=== PATIENT | female | born 1960 | race Caucasian/White ===

== ENCOUNTER → 2016-08-21 | Outpatient (CLI) | payer MEDICARE, OTHER ==
--- NOTE | 2016-08-21 11:40 | US ---
EXAMINATION TYPE: US venous doppler duplex LE DATE OF EXAM: 08/21/2016 11:07 AM COMPARISON: NONE CLINICAL HISTORY: M79.662 PAIN IN LT LOWER LIMB. Left calf pain and redness today; prior left leg DVT ~20 years ago after arthroscopy SIDE PERFORMED: Left VESSELS IMAGED: Common Femoral Vein Deep Femoral Vein Greater Saphenous Vein * Femoral Vein Popliteal Vein Small Saphenous Vein * Proximal Calf Veins (* superficial vessels) TECHNOLOGIST IMPRESSION: Left Leg: Negative for acute DVT. Intimal wall changes noted at left popliteal fossa may be from silvano or DVT, and may suggest chronic wall changes. Wall thickening and popliteal vein is suggestive of product of chronic thrombus. No hyperexpansile th rombus with absent compressibility is noted. IMPRESSION: No ultrasound evidence for acute DVT in the left lower extremity.
== END | disposition home or self-care (01) ==
LOC: RADUSWWP 09:48
PROVIDERS: ATTEND Family Medicine
DX: M79.662 Pain in left lower leg (principal)

== ENCOUNTER → 2017-02-12 | Outpatient (CLI) | payer MEDICARE, OTHER ==
--- NOTE | 2017-02-12 10:10 | US ---
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 GLAND SIZE: Right Lobe: 4.1 x 1.8 x 4.1 cm Overall Parenchyma: homogenous Left Lobe: 3.5 x 2.2 x 1.1 cm Overall Parenchyma: homogeneous Isthmus Thickness: 0.3 cm NODULES RIGHT: # of nodules measured on right: 0 LEFT: # of nodules measured on left: 0 ISTHMUS: # of nodules measured in the isthmus: 0 Bilateral neck scanned, no evidence of lymphadenopathy. IMPRESSION: Unremarkable thyroid ultrasound with no discrete nodules, thyroid enlargement, or thyroid heterogenei ty.
== END | disposition home or self-care (01) ==
LOC: RADUSWWP 09:19
PROVIDERS: ATTEND Family Medicine
DX: E04.9 Nontoxic goiter, unspecified (principal)
CPT/HCPCS: 76536

== ENCOUNTER → 2017-03-12 | Outpatient (CLI) | payer MEDICARE, OTHER ==
--- NOTE | 2017-03-12 10:01 | BD ---
EXAMINATION TYPE: MG DEXA axial skeleton. DATE OF EXAM: 03/12/2017 COMPARISON: NONE CLINICAL HISTORY: 56-year-old female postmenopausal screening Height: 64 IN Weight: 196 LBS FRAX RISK QUESTIONS: Alcohol (3 or more units per day): NO Family History (Parent hip fracture): NO Glucocorticoids (More than 3mos): NO (Ex: prednisone, prednisolone, methylprednisolone, dexamethasone, and hydrocortisone). History of Fracture in Adulthood: NO Secondary Osteoporosis: 1. Type 1 Diabetes: NO 2. Hyperthyroidism: NO 3. Menopause before 45: YES AGE 44 4. Malnutrition: NO 5. Chronic liver disease: NO Rheumatoid Arthritis: NO Current Tobacco Use: YES RISK FACTORS HISTORY OF: Active: YES Postmenopausal woman: AGE 44 Frequent falls: YES 5 FALLS IN LAST YEAR DUE TO FOOT MEDICATIONS: Additional Medications: MAGNESIUM, PRILOSEC, LUTEIN EXAM MEASUREMENTS: Bone mineral densitometry was performed using the [employer] System. Bone mineral density as measured about the Lumbar spine is: ----- L1-L4(G/cm2): 1.038 T Score Values are as follows: ----- L2: -1.6 ----- L3: -1.6 ----- L4: -0.8 ----- L1-L4: -1.2 Bone mineral density BASELINE Bone mineral density about the R hip (g/cm2): 0.772 Bone mineral density about the L hip (g/cm2): 0.820 T Score values are as follows: -----R Neck: -1.9 -----L Neck: -1.6 -----R Total: -1.3 -----L Total: -1.2 Bone mineral density BASELINE IMPRESSION: Osteopenia (T Score between -2.5 and -1 as noted by T score values as indicated by T score values in the lumbar spine and both hips). There is slightly increased risk of fracture and the patient may be considered for treatment. Re-Scre en 2-5 years. NOTE: T-SCORE=SD OF THE YOUNG ADULT MEAN.
--- NOTE | 2017-03-13 09:22 | MM ---
Reason for exam: screening (asymptomatic). Last mammogram was performed 2 years and 5 months ago. History: Patient is postmenopausal. Physical Findings: A clinical breast exam by your physician is recommended on an annual basis and results should be correlated with mammographic findings. MG 3D Screening Mammo W/Cad Bilateral CC and MLO view(s) were taken. Prior study comparison: October 21, 2014, bilateral MG screening mammo w CAD. October 17, 2012, bilateral digital screening mammo w/CAD. There are scattered fibroglandular densities. Finding: There are typically benign round calcifications in both breasts. There is a chronic nodularity in the right breast. New small nodularity in the left breast. ASSESSMENT: Incomplete: need additional imaging evaluation, BI-RAD 0 RECOMMENDATION: Ultrasound of the left breast. [facility] will attempt to contact patient to return for ultrasound.
== END | disposition home or self-care (01) ==
LOC: RADMAMWWP 07:27
PROVIDERS: ATTEND Family Medicine
DX: Z12.31 Encounter for screening mammogram for malignant neoplasm of breast (principal); N95.1 Menopausal and female climacteric states; M85.88 Other specified disorders of bone density and structure, other site
CPT/HCPCS: 77080; 77063; G0202

== ENCOUNTER 2017-04-15 09:15 | Observation (INO) | payer MEDICARE, OTHER ==
[2017-04-15] MEDS ORDERED: SODIUM CHLORIDE 0.9% 1,000 ML IV STA (09:38)
[2017-04-15 10:08] LABS: Basophils # (A) 0.1 k/uL (0-0.2); Basophils % (A) 1 %; CH 29.9; CHCM 34.3; Eosinophils # (A) 0.2 k/uL (0-0.7); Eosinophils % (A) 2 %; HCT 44.9 % (34.0-46.0); HDW 2.54; HGB 14.9 gm/dL (11.4-16.0); Luc # (Auto) 0.17; Luc % (Auto) 2; Lymphocytes # (A) 2.1 k/uL (1.0-4.8); Lymphocytes % (A) 18 %; MCHC 33.1 g/dL (31.0-37.0); MCV 87.5 fL (80.0-100.0); Mean Platelet Volume 7.4; Monocytes # (A) 0.5 k/uL (0-1.0); Monocytes % (A) 4 %; Neutrophils # (A) 8.4 k/uL (1.3-7.7); Neutrophils % (A) 74 %; RBC 5.13 m/uL (3.80-5.40); RDW 14.4 % (11.5-15.5); WBC 11.4 k/uL (3.8-10.6); WBC (Perox) 11.21
--- NOTE | 2017-04-15 10:16 | XR ---
EXAMINATION TYPE: XR chest 2V DATE OF EXAM: 04/15/2017 HISTORY: Chest Pain. REFERENCE: Previous study dated 08/20/2013. FINDINGS: The lungs are clear. Pleural spaces are clear. Heart size is normal. There is a gentle dext roscoliosis. There is been a previous ACDF in the lower cervical spine. IMPRESSION: NO ACUTE INTRATHORACIC ABNORMALITY.
[2017-04-15 10:18] LABS: Partial Thromboplastin Time 24.7 sec (22.0-30.0); Prothrombin Time 10.6 sec (9.0-12.0)
[2017-04-15 10:20] LABS: ALT 39 U/L (9-52); AST 24 U/L (14-36); Alkaline Phosphatase 132 U/L (38-126); Anion Gap 12 mmol/L; Blood Urea Nitrogen 16 mg/dL (7-17); Calcium 10.2 mg/dL (8.4-10.2); Carbon Dioxide 26 mmol/L (22-30); Chloride 100 mmol/L (98-107); Glucose 128 mg/dL (74-99); Non-African American GFR(MDRD) >60 (>60 ml/min/1.73 sqM); Potassium 3.4 mmol/L (3.5-5.1); Sodium 138 mmol/L (137-145); Total Bilirubin 0.5 mg/dL (0.2-1.3); Total Protein 8.1 g/dL (6.3-8.2)
[2017-04-15 10:30] LABS: Creatine Kinase 70 U/L (30-135)
--- NOTE | 2017-04-15 10:32 | ED ---
General Adult HPI - General Chief complaint: Shortness of Breath Stated complaint: SOB, SHAKY, NAUSEA,WEAKNESS Time Seen by Provider: 04/15/17 09:30 Source: patient, RN notes reviewed Mode of arrival: wheelchair Limitations: no limitations - History of Present Illness Initial comments: Patient 57-year-old female who presents emergency room today with a chief complaint of increased palpitations. Patient states that she's felt shaky nauseous at times. Patient does admit that she's noticed that over the last today she's felt her heart racing off and on. Patient does admit that she tried her inhaler at home but had no relief of the symptoms. Patient does admit to a chronic cough and some congestion. Patient admits that seem to be worse when she got up and moving around. She said the palpitations in which is better at rest. Patient denies any other complaints or symptoms. - Related Data Home Medications Medication Instructions Recorded Confirmed EPINEPHrine (Auto Inject) [Epipen] 0.3 mg IM ONCE PRN 02/19/14 04/15/17 Omeprazole 40 mg PO BID 02/19/14 04/15/17 Roflumilast [Daliresp] 500 mcg PO DAILY 02/19/14 04/15/17 amLODIPine BESYLATE [Norvasc] 5 mg PO DAILY 02/19/14 04/15/17 Chlorthalidone [Hygroton] 25 mg PO DAILY 04/15/17 04/15/17 Lutein 6mg 6 mg PO HS 04/15/17 04/15/17 Magnesium Oxide [Mag-Ox] 250 mg PO BID 04/15/17 04/15/17 Allergies Allergy/AdvReac Type Severity Reaction Status Date / Time acetaminophen [From Vicodin] AdvReac Rash/Hives Verified 04/15/17 09:38 ciprofloxacin [From Cipro] AdvReac Rash/Hives Verified 04/15/17 09:38 ciprofloxacin HCl AdvReac Rash/Hives Verified 04/15/17 09:38 [From Cipro] codeine AdvReac Rash/Hives Verified 04/15/17 09:38 egg AdvReac Rash/Hives Verified 04/15/17 09:38 hydrocodone bitartrate AdvReac Rash/Hives Verified 04/15/17 09:38 [From Vicodin] meperidine HCl [From Demerol] AdvReac Rash/Hives Verified 04/15/17 09:38 Penicillins AdvReac Rash/Hives Verified 04/15/17 09:38 Sulfa (Sulfonamide AdvReac Rash/Hives Verified 04/15/17 09:38 Antibiotics) venom-honey bee AdvReac Rash/Hives Verified 04/15/17 09:38 [bee venom (honey bee)] MUSHROOM AdvReac Rash/Hives Uncoded 04/15/17 09:28 Review of Systems ROS Statement: Those systems with pertinent positive or pertinent negative responses have been documented in the HPI. ROS Other: All systems not noted in ROS Statement are negative. Past Medical History Past Medical History: Asthma, COPD Additional Past Medical History / Comment(s): VASQUEZ'S. diabetic diet controlled History of Any Multi-Drug Resistant Organisms: None Reported Past Surgical History: Appendectomy, Section, Cholecystectomy, Joint Replacement, Orthopedic Surgery Additional Past Surgical History / Comment(s): NECK SX, LT FOOT SX, COLONOSCOPY , D&C, EGD, BILAT TKA X 4, RT EAR TUBE INSERTED Past Anesthesia/Blood Transfusion Reactions: Postoperative Nausea & Vomiting ( PONV) Past Psychological History: No Psychological Hx Reported Smoking Status: Current every day smoker Past Alcohol Use History: Rare Past Drug Use History: Marijuana - Past Family History Father Family Medical History: Cancer General Exam - General Exam Comments Initial Comments: General: The patient is awake and alert, in no distress, and does not appear acutely ill. Eye: Pupils are equal, round and reactive to light, extra-ocular movements are intact. No nystagmus. There is normal conjunctiva bilaterally. No signs of icterus. Ears, nose, mouth and throat: There are moist mucous membranes and no oral lesions. Neck: The neck is supple, there is no tenderness or JVD. Cardiovascular: There is a regular rate and rhythm. No murmur, rub or gallop is appreciated. Respiratory: Lungs are clear to auscultation, respirations are non-labored, breath sounds are equal. No wheezes, stridor, rales, or rhonchi. Gastrointestinal: [Soft, non-distended, non-tender abdomen without masses or organomegaly noted. There is no rebound or guarding present. No CVA tenderness. Bowel sounds are unremarkable.] Musculoskeletal: Normal ROM, no tenderness. Strength 5/5. Sensation intact. Pulses equal bilaterally 2+. Neurological: A&O x 3. CN II-XII intact, There are no obvious motor or sensory deficits. Coordination appears grossly intact. Speech is normal. Skin: Skin is warm and dry and no rashes or lesions are noted. Psychiatric: Cooperative, appropriate mood & affect, normal judgment. Limitations: no limitations Course Vital Signs 04/15/17 09:25 Temperature 97.9 F Pulse Rate 106 H Respiratory 18 Rate Blood Pressure 157/88 O2 Sat by Pulse 97 Oximetry Medical Decision Making - Medical Decision Making Patient reexamined at this time shows no signs of distress. States still expresses some palpitation type feeling to the emergency room. She states that she's had some pain in her chest at times over the last day with some exertional fatigue. Patient resting comfortably currently. Her labs been reviewed are unremarkable. Chest x-ray is negative. Patient will be admitted for observation for serial enzymes. - Lab Data Result diagrams: 04/15/17 09:58 04/15/17 09:58 Lab Results 04/15/17 04/15/17 04/15/17 Range/Units 09:58 09:58 09:58 WBC 11.4 H (3.8-10.6) k/uL RBC 5.13 (3.80-5.40) m/uL Hgb 14.9 (11.4-16.0) gm/dL Hct 44.9 (34.0-46.0) % MCV 87.5 (80.0-100.0) fL MCH 29.0 (25.0-35.0) pg MCHC 33.1 (31.0-37.0) g/dL RDW 14.4 (11.5-15.5) % Plt Count 401 (150-450) k/uL Neutrophils % 74 % Lymphocytes % 18 % Monocytes % 4 % Eosinophils % 2 % Basophils % 1 % Neutrophils # 8.4 H (1.3-7.7) k/uL Lymphocytes # 2.1 (1.0-4.8) k/uL Monocytes # 0.5 (0-1.0) k/uL Eosinophils # 0.2 (0-0.7) k/uL Basophils # 0.1 (0-0.2) k/uL PT (9.0-12.0) sec INR (<1.2) APTT (22.0-30.0) sec Sodium 138 (137-145) mmol/L Potassium 3.4 L (3.5-5.1) mmol/L Chloride 100 (98-107) mmol/L Carbon Dioxide 26 (22-30) mmol/L Anion Gap 12 mmol/L BUN 16 (7-17) mg/dL Creatinine 0.92 (0.52-1.04) mg/dL Est GFR (MDRD) Af Amer >60 (>60 ml/min/1.73 sqM) Est GFR (MDRD) Non-Af >60 (>60 ml/min/1.73 sqM) Glucose 128 H (74-99) mg/dL Calcium 10.2 (8.4-10.2) mg/dL Magnesium 2.0 (1.6-2.3) mg/dL Total Bilirubin 0.5 (0.2-1.3) mg/dL AST 24 (14-36) U/L ALT 39 (9-52) U/L Alkaline Phosphatase 132 H (38-126) U/L Total Creatine Kinase 70 (30-135) U/L CK-MB (CK-2) 0.5 (0.0-2.4) ng/mL CK-MB (CK-2) Rel Index 0.7 Troponin I <0.012 (0.000-0.034) ng/mL Total Protein 8.1 (6.3-8.2) g/dL Albumin 4.5 (3.5-5.0) g/dL 04/15/17 Range/Units 09:58 WBC (3.8-10.6) k/uL RBC (3.80-5.40) m/uL Hgb (11.4-16.0) gm/dL Hct (34.0-46.0) % MCV (80.0-100.0) fL MCH (25.0-35.0) pg MCHC (31.0-37.0) g/dL RDW (11.5-15.5) % Plt Count (150-450) k/uL Neutrophils % % Lymphocytes % % Monocytes % % Eosinophils % % Basophils % % Neutrophils # (1.3-7.7) k/uL Lymphocytes # (1.0-4.8) k/uL Monocytes # (0-1.0) k/uL Eosinophils # (0-0.7) k/uL Basophils # (0-0.2) k/uL PT 10.6 (9.0-12.0) sec INR 1.0 (<1.2) APTT 24.7 (22.0-30.0) sec Sodium (137-145) mmol/L Potassium (3.5-5.1) mmol/L Chloride (98-107) mmol/L Carbon Dioxide (22-30) mmol/L Anion Gap mmol/L BUN (7-17) mg/dL Creatinine (0.52-1.04) mg/dL Est GFR (MDRD) Af Amer (>60 ml/min/1.73 sqM) Est GFR (MDRD) Non-Af (>60 ml/min/1.73 sqM) Glucose (74-99) mg/dL Calcium (8.4-10.2) mg/dL Magnesium (1.6-2.3) mg/dL Total Bilirubin (0.2-1.3) mg/dL AST (14-36) U/L ALT (9-52) U/L Alkaline Phosphatase (38-126) U/L Total Creatine Kinase (30-135) U/L CK-MB (CK-2) (0.0-2.4) ng/mL CK-MB (CK-2) Rel Index Troponin I (0.000-0.034) ng/mL Total Protein (6.3-8.2) g/dL Albumin (3.5-5.0) g/dL Disposition Clinical Impression: Palpitations Disposition: ADMITTED IP TO THIS HOSP Condition: Good Referrals: Cornel Darden MD [Primary Care Provider] - 1-2 days Time of Disposition: 11:39
[2017-04-15 10:43] LABS: Creatine Kinase MB 0.5 ng/mL (0.0-2.4); Troponin I <0.012 ng/mL (0.000-0.034)
[2017-04-15] MEDS ORDERED: NITROGLYCERIN SL TABS 0.4 MG TAB SUBLINGUAL PRN (12:05)
[2017-04-15] MEDS ORDERED: ASPIRIN 81 MG PO STA (12:05)
[2017-04-15 13:54] VITALS: BMI 31.8
[2017-04-15 16:51] LABS: Creatine Kinase 64 U/L (30-135)
[2017-04-15 17:05] LABS: Creatine Kinase MB 0.5 ng/mL (0.0-2.4); Troponin I <0.012 ng/mL (0.000-0.034)
[2017-04-15] MEDS: PANTOPRAZOLE 40 MG TABLET PO SCH (17:33)
[2017-04-15] MEDS: ACETAMINOPHEN TAB 325 MG TAB PO PRN (17:35)
[2017-04-15] MEDS: MAGNESIUM OXIDE 400 MG TAB PO SCH (17:51)
--- NOTE | 2017-04-15 21:57 | HP ---
HISTORY AND PHYSICAL . CHIEF COMPLAINT: A 57-year-old white female presents with shortness of breath. HISTORY OF PRESENT ILLNESS: A 57-year-old white female with increased exertional chest pain and palpitations and nausea, felt heart racing, off and on. She has a chronic cough, some congestion, worse with moving. She was admitted to rule out myocardial infarction. HOME MEDICINES: Include omeprazole 40 mg b.i.d., Dularest 500 mg daily, Norvasc 5 mg daily, Hygroton 25 mg daily, Mag oxide 250 b.i.d., lutein 6 mg daily. ALLERGIES: TO VICODIN, CIPRO, CODEINE, EGGS, DEMEROL, PENICILLIN, SULFA HONEY BEES. MUSHROOMS. REVIEW OF SYSTEMS: Fourteen point review of systems negative except for mentioned in HPI. PHYSICAL EXAM: Temp 97.9, pulse 100 to 106, respiratory 12 to 18, blood pressure 150s over 80s, O2 97% on room air. HEART: Regular rate and rhythm. No murmurs, rubs or gallops. Lungs are clear. No rales, rhonchi, or wheezing. GI: Soft, nontender. Musculoskeletal normal range of motion x4. Cranial nerves 2-12 intact. Skin is warm and dry. Psych fair mood, affect. Ophthalmological pupils equal, round, react to light and accommodation. Neurologic cranial nerves 2 thru 12 are intact. ASSESSMENT: Atypical chest pain, rule out myocardial infarction, possible stress test will be needed. It has been well over a year or 2 since her last one. Chest x-ray is normal. Labs are essentially normal. Alkaline phosphatase is a little bit high at 132. Await cardiology recommendations. Stress test in the morning. MMODL / IJN: [id number] /
[2017-04-15 22:08] LABS: Creatine Kinase 71 U/L (30-135)
[2017-04-15 22:21] LABS: Creatine Kinase MB 0.5 ng/mL (0.0-2.4); Troponin I <0.012 ng/mL (0.000-0.034)
[2017-04-15 23:46] VITALS: RESP 18
[2017-04-16 05:45] LABS: Cholesterol 298 mg/dL (<200); HDL Cholesterol 50 mg/dL (40-60)
[2017-04-16] MEDS ORDERED: SUCRALFATE 1 GM TAB PO STA (08:18)
[2017-04-16] MEDS ORDERED: CHLORTHALIDONE 25 MG TAB PO SCH (09:00)
[2017-04-16] MEDS ORDERED: NON-FORMULARY DRUG (Roflumilast [Daliresp] 500 MCG) PO SCH (09:00)
[2017-04-16] MEDS ORDERED: amLODIPine 5 MG TAB PO SCH (09:00)
[2017-04-16] MEDS ORDERED: ASPIRIN 325 MG TAB PO SCH (09:00)
[2017-04-16] MEDS ORDERED: ASPIRIN 81 MG PO SCH (09:00)
[2017-04-16] MEDS ORDERED: DOBUTamine DRIP for NUC MED 500 MG in DEXTROSE/WATER 1 250ML.BAG IV ONE (10:30)
[2017-04-16] MEDS: PANTOPRAZOLE 40 MG TABLET PO SCH (11:25)
[2017-04-16 11:33] VITALS: BP 128/78; PULSE 68; TEMP 98
--- NOTE | 2017-04-16 12:08 | ECHOF ---
Referral Reason:shortness of breath MEASUREMENTS -------- HEIGHT: 165.1 cm WEIGHT: 86.6 kg BP: 118/72 RVIDd: 2.5 cm (< 3.3) IVSd: 1.0 cm (0.6 - 1.1) LVIDd: 3.8 cm (3.9 - 5.3) LVPWd: 1.0 cm (0.6 - 1.1) IVSs: 1.2 cm LVIDs: 3.1 cm LVPWs: 1.2 cm LAESV Index (A-L): 22.59 ml/m Ao Diam: 3.3 cm (2.0 - 3.7) AV Cusp: 2.0 cm (1.5 - 2.6) LA Diam: 3.5 cm (2.7 - 3.8) MV E Isidoro: 0.66 m/s MV DecT: 363 ms MV A Isidoro: 0.75 m/s MV E/A Ratio: 0.88 RAP: 5.00 mmHg RVSP: 9.59 mmHg FINDINGS -------- Sinus rhythm. This was a technically adequate study. The left ventricular size is normal. Left ventricular wall thickness is normal. Overall left vent ricular systolic function is normal with, an EF between 55 - 60 %. The right ventricle is normal in size and function. Normal LA size by volume 22+/-6 ml/m2. The right atrium is normal in size. The aortic valve is trileaflet, and appears structurally normal. No aortic stenosis or regurgitation. The mitral valve leaflets are mildly thickened. There is trace mitral regurgitation. Trace tricuspid regurgitation present. Right ventricular systolic pressure is normal at < 35 mmHg. There is no evidence of pulmonary hypertension. The pulmonic valve was not well visualized. The aortic root size is normal. Normal inferior vena cava with normal inspiratory collapse consistent with estimated right atrial pre ssure of 5 mmHg. The pericardium is normal. There is no pericardial effusion. CONCLUSIONS -------- 1. Sinus rhythm. 2. This was a technically adequate study. 3. The left ventricular size is normal. 4. Left ventricular wall thickness is normal. 5. Overall left ventricular systolic function is normal with, an EF between 55 - 60 %. 6. Normal LA size by volume 22+/-6 ml/m2. 7. The aortic valve is trileaflet, and appears structurally normal. No aortic stenosis or regurgitati on. 8. The mitral valve leaflets are mildly thickened. 9. There is trace mitral regurgitation. 10. Trace tricuspid regurgitation present. 11. Right ventricular systolic pressure is normal at < 35 mmHg. 12. There is no evidence of pulmonary hypertension. 13. The pulmonic valve was not well visualized. 14. The aortic root size is normal. 15. There is no pericardial effusion. ROLLS BAKER: Olegario Patricio RDCS
[2017-04-16] MEDS: MAGNESIUM OXIDE 400 MG TAB PO SCH (12:58)
[2017-04-16] MEDS: ACETAMINOPHEN TAB 325 MG TAB PO PRN (13:01)
--- NOTE | 2017-04-16 13:42 | ECHOS ---
STRESS ECHOCARDIOGRAM DATE OF SERVICE: 04/16/2017. DOBUTAMINE STRESS ECHO: MEDICATIONS:: BASELINE HEART RATE: 69 BASELINE BLOOD PRESSURE: 131/90 MAXIMUM HEART RATE: 156 MAXIMUM BLOOD PRESSURE: 166/105 85% MPHR: 139 100% MPHR: 163 METS: MAXIMUM STAGE REACHED: TOTAL EXERCISE TIME: INDICATIONS: Flutter. CLINICAL INFORMATION: Patient was given dobutamine infusion according to the standard protocol. Peak heart rate of 156 was achieved. Maximum blood pressure 166/105 mmHg was noted. The resting EKG shows normal sinus rhythm with normal W[place] interval and QRS duration and normal ST-T waves. During dobutamine infusion, J-point depression with upsloping ST segments were noted. Patient did not complain of any chest pain during the test. The baseline echocardiographic images reveal normal left ventricular chamber size with normal left ventricular systolic function. At the peak dose of dobutamine infusion, normal increase in the wall thickness and contractility was noted. FINAL IMPRESSION: This dobutamine stress echocardiographic study is negative for stress-induced ischemia. EKG portion of the stress test is not suggestive of ischemia. MMODL / IJN: [id number] /
--- NOTE | 2017-04-16 14:02 | P.CRDCN ---
History of Present Illness Consult date: 04/16/17 History of present illness: This 57-year-old female past medical history significant for hypertension, hyperlipidemia, COPD and chronic tobacco abuse. She denies history of coronary artery disease and has never seen a crystallography teacher for any reason. We have been asked to see this patient in consultation for complaints of shortness of breath. She states she has chronic asthma COPD and uses inhalers regularly at home but in this instance her inhalers were ineffective in relieving her shortness of breath. She denies associated chest pain, dizziness, diaphoresis, nausea or vomiting. She states she did feel palpitations at the time but did not take her pulse. EKG reveals sinus mechanism with flattened T-waves in inferior leads with no acute ST changes. Chest xray negative for an acute cardiopulmonary process. Cardiac enzymes negative x3. LDL 208, HDL 50, triglycerides 200 and total cholesterol 298. She states she has tried statins in the past and has severe muscle aches and spasms. Review of Systems CONSTITUTIONAL: Denies fever. Denies chills. EYES: Denies blurred vision. Denies vision changes. Denies eye pain. EARS, NOSE, MOUTH & THROAT: Denies headache. Denies sore throat. Denies ear pain. CARDIOVASCULAR: Denies chest pain. Complains of shortness of breath at rest, resolved. Denies orthopnea. Denies PND. Denies palpitations. RESPIRATORY: Denies cough. GASTROINTESTINAL: Denies abdominal pain. Denies diarrhea. Denies constipation. Denies nausea. Denies vomiting. MUSCULOSKELETAL: Denies myalgias. INTEGUMENTARY: Denies pruitis. Denies rash. NEUROLOGIC: Denies numbness. Denies tingling. Denies weakness. PSYCHIATRIC: Denies anxiety. Denies depression. ENDOCRINE: Denies fatigue. Denies weight change. Denies polydipsia. Denies polyurina. GENITOURINARY: Denies burning, hematuria or urgency with micturation. HEMATOLOGIC: Denies history of anemia. Denies bleeding. Past Medical History Past Medical History: Asthma, COPD, Deep Vein Thrombosis (DVT), GERD/Reflux, Hyperlipidemia, Hypertension, Osteoarthritis (OA) Additional Past Medical History / Comment(s): Catarino Teague does scopes every 2 years; per pt has really bad reflux which caused issue. History of Any Multi-Drug Resistant Organisms: None Reported Past Surgical History: Appendectomy, Section, Cholecystectomy, Joint Replacement, Orthopedic Surgery, Tonsillectomy Additional Past Surgical History / Comment(s): NECK SX, LT FOOT SX, COLONOSCOPY , D&C, EGD, BILAT TKA X 4, RT EAR TUBE INSERTED Past Anesthesia/Blood Transfusion Reactions: Postoperative Nausea & Vomiting ( PONV) Past Psychological History: No Psychological Hx Reported Smoking Status: Current every day smoker Past Alcohol Use History: Rare Additional Past Alcohol Use History / Comment(s): smokes 1 pack per day Past Drug Use History: Marijuana Additional Drug Use History / Comment(s): has medical marijuana card, uses occasionally - Past Family History Father Family Medical History: Cancer Mother Family Medical History: CVA/TIA Additional Family Medical History / Comment(s): triple bypass Medications and Allergies Home Medications Medication Instructions Recorded Confirmed Type EPINEPHrine (Auto Inject) [Epipen] 0.3 mg IM ONCE PRN 02/19/14 04/15/17 History Omeprazole 40 mg PO BID 02/19/14 04/15/17 History Roflumilast [Daliresp] 500 mcg PO DAILY 02/19/14 04/15/17 History amLODIPine BESYLATE [Norvasc] 5 mg PO DAILY 02/19/14 04/15/17 History Chlorthalidone [Hygroton] 25 mg PO DAILY 04/15/17 04/15/17 History Lutein 6mg 6 mg PO HS 04/15/17 04/15/17 History Magnesium Oxide [Mag-Ox] 250 mg PO BID 04/15/17 04/15/17 History Alirocumab [Praluent Pen] 75 mg SQ WEEKLY #12 pen.injctr 04/16/17 Rx Allergies Allergy/AdvReac Type Severity Reaction Status Date / Time acetaminophen [From Vicodin] AdvReac Rash/Hives Verified 04/15/17 09:38 ciprofloxacin [From Cipro] AdvReac Rash/Hives Verified 04/15/17 09:38 ciprofloxacin HCl AdvReac Rash/Hives Verified 04/15/17 09:38 [From Cipro] codeine AdvReac Rash/Hives Verified 04/15/17 09:38 egg AdvReac Rash/Hives Verified 04/15/17 09:38 hydrocodone bitartrate AdvReac Rash/Hives Verified 04/15/17 09:38 [From Vicodin] meperidine HCl [From Demerol] AdvReac Rash/Hives Verified 04/15/17 09:38 Penicillins AdvReac Rash/Hives Verified 04/15/17 09:38 Sulfa (Sulfonamide AdvReac Rash/Hives Verified 04/15/17 09:38 Antibiotics) venom-honey bee AdvReac Rash/Hives Verified 04/15/17 09:38 [bee venom (honey bee)] MUSHROOM AdvReac Rash/Hives Uncoded 04/15/17 09:28 Physical Exam Vitals: Vital Signs Temp Pulse Pulse Resp BP BP BP 04/16/17 07:51 97.3 F L 74 18 118/72 04/16/17 04:00 97.6 F 95 18 119/65 04/16/17 00:00 67 18 04/15/17 23:45 98.2 F 61 18 97/52 04/15/17 20:00 98 F 63 16 119/65 04/15/17 16:00 97.5 F L 88 16 128/70 04/15/17 13:18 97.5 F L 72 16 131/71 04/15/17 09:25 97.9 F 106 H 18 157/88 Pulse Ox 04/16/17 07:51 96 04/16/17 04:00 96 04/16/17 00:00 04/15/17 23:45 99 04/15/17 20:00 96 04/15/17 16:00 95 04/15/17 13:18 96 04/15/17 09:25 97 Intake and Output 04/15/17 04/16/17 04/16/17 22:59 06:59 14:59 Other: Voiding Method Toilet Toilet # Voids 2 2 GENERAL: This is a 57-year-old female in no apparent distress at the time of my examination. HEENT: Head is atraumatic, normocephalic. Pupils are equal, round. Sclerae anicteric. Conjunctivae are clear. Mucous membranes of the mouth are moist. Neck is supple. There is no jugular venous distention. No carotid bruit is heard. LUNGS: Course lung sounds b/l bases with no wheezes or rales. No chest wall tenderness is noted on palpation or with deep breathing. HEART: Regular rate and rhythm without murmurs, rubs or gallops. S1 and S2 heard. ABDOMEN: Soft, nontender. Bowel sounds are heard. No organomegaly noted. EXTREMITIES: 2+ peripheral pulses with no evidence of peripheral edema and no calf tenderness noted. NEUROLOGIC: Patient is awake, alert and oriented x3. Results 04/15/17 09:58 04/15/17 09:58 Cardiac Enzymes 04/15/17 04/15/17 04/15/17 Range/Units 09:58 09:58 16:18 AST 24 (14-36) U/L CK-MB (CK-2) 0.5 0.5 (0.0-2.4) ng/mL Troponin I <0.012 <0.012 (0.000-0.034) ng/mL 04/15/17 Range/Units 21:39 AST (14-36) U/L CK-MB (CK-2) 0.5 (0.0-2.4) ng/mL Troponin I <0.012 (0.000-0.034) ng/mL Coagulation 04/15/17 Range/Units 09:58 PT 10.6 (9.0-12.0) sec APTT 24.7 (22.0-30.0) sec Lipids 04/15/17 Range/Units 09:58 Triglycerides 200 H (<150) mg/dL Cholesterol 298 H (<200) mg/dL HDL Cholesterol 50 (40-60) mg/dL CBC 04/15/17 Range/Units 09:58 WBC 11.4 H (3.8-10.6) k/uL RBC 5.13 (3.80-5.40) m/uL Hgb 14.9 (11.4-16.0) gm/dL Hct 44.9 (34.0-46.0) % Plt Count 401 (150-450) k/uL Comprehensive Metabolic Panel 04/15/17 Range/Units 09:58 Sodium 138 (137-145) mmol/L Potassium 3.4 L (3.5-5.1) mmol/L Chloride 100 (98-107) mmol/L Carbon Dioxide 26 (22-30) mmol/L BUN 16 (7-17) mg/dL Creatinine 0.92 (0.52-1.04) mg/dL Glucose 128 H (74-99) mg/dL Calcium 10.2 (8.4-10.2) mg/dL AST 24 (14-36) U/L ALT 39 (9-52) U/L Alkaline Phosphatase 132 H (38-126) U/L Total Protein 8.1 (6.3-8.2) g/dL Albumin 4.5 (3.5-5.0) g/dL Current Medications Generic Name Dose Route Start Last Admin Trade Name Freq PRN Reason Stop Dose Admin Acetaminophen 650 mg 04/15/17 16:51 04/15/17 17:35 Tylenol Tab PO 650 mg Q4HR PRN Administration Fever and/ or Mild Pain Amlodipine Besylate 5 mg 04/16/17 09:00 Norvasc PO DAILY [facility] Aspirin 81 mg 04/16/17 09:00 Aspirin PO DAILY [facility] Chlorthalidone 25 mg 04/16/17 09:00 [place] PO DAILY [facility] Magnesium Oxide 400 mg 04/15/17 21:00 04/15/17 17:51 Mag-Ox PO 400 mg BID RE[facility] Administration Nitroglycerin 0.4 mg 04/15/17 12:05 Nitrostat SUBLINGUAL Q5M PRN Chest Pain Lutein 6mg 6 mg 04/15/17 21:00 04/15/17 17:51 PO 6 mg HS [facility] Administration Non-Formulary Medication 500 mcg 04/16/17 09:00 Roflumilast [Daliresp] PO DAILY [facility] Pantoprazole Sodium 40 mg 04/15/17 17:30 04/15/17 17:33 Protonix PO 40 mg AC-BID RE[facility] Administration Intake and Output 04/15/17 04/16/17 04/16/17 22:59 06:59 14:59 Other: Voiding Method Toilet Toilet # Voids 2 2 04/15/17 09:58 04/15/17 09:58 Assessment and Plan Assessment: ASSESSMENT 1. Shortness of breath at rest unrelieved by inhalers at home. 2. Hyperlipidemia, uncontrolled with history of familial hyperlipidema and intolerance to statins. 3. COPD 4. Hypertension 5. Chronic tobacco abuse PLAN Obtain 2D echocardiogram and doppler study to assess cardiac structure and function. Perform dobutamine stress echocardiogram to evaluate for coronary artery ischemia. Recommend lifestyle modifications for cholesterol as well as Praluent 75 mg injectable medication to lower LDL since she is statin intolerant. This has been ordered and case management is working on prior authorization. This may take up to 72-hrs. This has been explained to the patient and case management will follow up with her at that time at home. If above diagnostic testing is normal, from cardiac perspective, she is stable for discharge home. She should follow up with Dr. Azul in 2-4 weeks. Thank you kindly for this consultation. Nurse Practitioner note has been reviewed, I agree with a documented findings and plan of care. Patient was seen and examined.
--- NOTE | 2017-05-20 10:55 | P.DS ---
Providers Date of admission: 04/15/17 12:04 Attending physician: Cornel Darden Consults: 04/15/17 12:05 Consult Physician Stat Consulting Provider: [facility] Consult Reason/Comments: chest pain Do you want consulting provider notified?: Yes Primary care physician: Cornel Darden [facility] Course: Patient was admitted with chest pain suspicious for angina she is a history of nicotine addiction and COPD she underwent dobutamine stress test which is negative for any ischemia she is cleared by cardiology for discharge pulmonary embolism was ruled out with negative CT of the chest and d-dimer PCL x-rays and labs in the chart cleared by cardiology for discharge Patient Condition at Discharge: Good Plan - Discharge Summary Discharge Rx Participant: Yes New Discharge Prescriptions: New Alirocumab [Praluent Pen] 75 mg SQ WEEKLY #12 pen.injctr No Action Omeprazole 40 mg PO BID EPINEPHrine (Auto Inject) [Epipen] 0.3 mg IM ONCE PRN PRN Reason: Anaphylaxis Roflumilast [Daliresp] 500 mcg PO DAILY amLODIPine BESYLATE [Norvasc] 5 mg PO DAILY Magnesium Oxide [Mag-Ox] 250 mg PO BID Chlorthalidone [Hygroton] 25 mg PO DAILY Lutein 6mg 6 mg PO HS Discharge Medication List EPINEPHrine (Auto Inject) [Epipen] 0.3 mg IM ONCE PRN 02/19/14 [History] Omeprazole 40 mg PO BID 02/19/14 [History] Roflumilast [Daliresp] 500 mcg PO DAILY 02/19/14 [History] amLODIPine BESYLATE [Norvasc] 5 mg PO DAILY 02/19/14 [History] Chlorthalidone [Hygroton] 25 mg PO DAILY 04/15/17 [History] Lutein 6mg 6 mg PO HS 04/15/17 [History] Magnesium Oxide [Mag-Ox] 250 mg PO BID 04/15/17 [History] Alirocumab [Praluent Pen] 75 mg SQ WEEKLY #12 pen.injctr 04/16/17 [Rx] Follow up Appointment(s)/Referral(s): Cornel Darden MD [Primary Care Provider] - 1-2 days Dipika Azul MD [STAFF PHYSICIAN] - 2 Weeks Patient Instructions/Handouts: Chest Pain (GEN) Activity/Diet/Wound Care/Special Instructions: Waiting for insurance approval on [employer] Pen, clinical case manager to follow up Discharge Disposition: HOME SELF-CARE
== END 2017-04-16 14:20 | disposition home or self-care (01) ==
LOC: EC 09:15 → 3OBS 12:04
PROVIDERS: ADMIT Family Medicine; ATTEND Family Medicine
DX: R07.89 Other chest pain (principal); R00.2 Palpitations; J44.9 Chronic obstructive pulmonary disease, unspecified; K21.9 Gastro-esophageal reflux disease without esophagitis; M19.90 Unspecified osteoarthritis, unspecified site; E78.5 Hyperlipidemia, unspecified; I10 Essential (primary) hypertension; K22.70 Barrett's esophagus without dysplasia; F17.200 Nicotine dependence, unspecified, uncomplicated; R53.1 Weakness; Z79.899 Other long term (current) drug therapy; Z88.6 Allergy status to analgesic agent; Z88.1 Allergy status to other antibiotic agents; Z91.030 Bee allergy status; Z91.012 Allergy to eggs; Z88.5 Allergy status to narcotic agent; Z88.0 Allergy status to penicillin; Z88.2 Allergy status to sulfonamides; Z88.8 Allergy status to other drugs, medicaments and biological substances; Z91.018 Allergy to other foods; Z86.718 Personal history of other venous thrombosis and embolism
CPT/HCPCS: 99285 ×2; 96360 ×2; 96361 ×4; 36415; 94760; 93005; 93017; 93306; 93350; 80061; 80053; 82550; 82553; 83735; 84484; 85025; 85610; 85730; 71020; G0378 ×2; J1250

== ENCOUNTER → 2017-08-27 | Outpatient (CLI) | payer MEDICARE, OTHER ==
--- NOTE | 2017-08-27 08:37 | CT ---
EXAMINATION TYPE: CT sinus wo con DATE OF EXAM: 08/27/2017 COMPARISON: NONE HISTORY: Facial pain, pressure and drainage for months CT DLP: 654.4 mGycm. Automated Exposure Control for Dose Reduction was Utilized. TECHNIQUE: CT scan of the sinuses is performed without contrast, axial images are obtained, coronal r eformatted images are also reviewed. FINDINGS: Mild mucosal thickening involving the left maxillary sinus and ethmoid air cells. No air-fl uid levels. Remaining sinuses are normal development and aeration.. The ostiomeatal complex is paten t bilaterally on the coronal images. Visualized portion of mastoid air cells show no abnormal opacification. The globes are intact bilate rally. IMPRESSION: 1. Mild changes of chronic sinusitis.
== END | disposition home or self-care (01) ==
LOC: RADCTMAIN 08:05
PROVIDERS: ATTEND Family Medicine
DX: J32.9 Chronic sinusitis, unspecified (principal)
CPT/HCPCS: 70486

== ENCOUNTER → 2017-09-13 | Outpatient (CLI) | payer MEDICARE, OTHER ==
--- NOTE | 2017-09-13 08:33 | USB ---
Reason for exam: follow-up at short interval from prior study. History: Patient is postmenopausal. US Breast LT Left breast ultrasound includes all four quadrants, the retroareolar region and axilla. Finding demonstrates no cystic or solid lesion seen. These results were verbally communicated with the patient and result sheet given to the patient on 09/13/17. ASSESSMENT: Negative, BI-RAD 1 RECOMMENDATION: Return to routine screening mammogram schedule for both breasts. Back on schedule.
--- NOTE | 2017-09-13 08:33 | MM ---
Reason for exam: follow-up at short interval from prior study. Last mammogram was performed 6 months ago. History: Patient is postmenopausal. Physical Findings: Nurse did not find any significant physical abnormalities on exam. MG 3D Diag Mammo W/Cad LT CC and MLO view(s) were taken of the left breast. Prior study comparison: March 12, 2017, bilateral MG 3d screening mammo w/cad. October 21, 2014, bilateral MG screening mammo w CAD. There are scattered fibroglandular densities. Finding: There are typically benign round calcifications in the left breast. There is a chronic nodularity in the left breast. There is no discrete abnormality. These results were verbally communicated with the patient and result sheet given to the patient on 09/13/17. ASSESSMENT: Benign, BI-RAD 2 RECOMMENDATION: Return to routine screening mammogram schedule for both breasts. Back on schedule.
== END | disposition home or self-care (01) ==
LOC: RADMAMWWP 07:19
PROVIDERS: ATTEND Family Medicine
DX: R92.8 Other abnormal and inconclusive findings on diagnostic imaging of breast (principal)
CPT/HCPCS: 77065; 76641; G0279

== ENCOUNTER 2017-09-22 06:32 | Emergency (ER) | payer MEDICARE, OTHER ==
[2017-09-22 06:40] VITALS: TEMP 97.6
--- NOTE | 2017-09-22 07:18 | ED ---
General Adult HPI - General Chief complaint: Extremity Injury, Lower Stated complaint: Leg Pain Time Seen by Provider: 09/22/17 07:03 Source: patient, RN notes reviewed Mode of arrival: wheelchair Limitations: no limitations - History of Present Illness Initial comments: Patient is a pleasant 57-year-old female presenting to the emergency Department with left leg pain. Onset of symptoms was last night. Symptoms are somewhat worsened this morning. Patient has a tender area of redness left medial lower leg. Patient also has redness. Patient does have a history of cellulitis however this does not appear similar to that. Discomfort is tender to touch. There is not much discomfort without touching it. No fevers. Patient is currently on antibiotics for sinus infection. - Related Data Home Medications Medication Instructions Recorded Confirmed EPINEPHrine (Auto Inject) [Epipen] 0.3 mg IM ONCE PRN 02/19/14 04/15/17 Omeprazole 40 mg PO BID 02/19/14 04/15/17 Roflumilast [Daliresp] 500 mcg PO DAILY 02/19/14 04/15/17 amLODIPine BESYLATE [Norvasc] 5 mg PO DAILY 02/19/14 04/15/17 Chlorthalidone [Hygroton] 25 mg PO DAILY 04/15/17 04/15/17 Lutein 6mg 6 mg PO HS 04/15/17 04/15/17 Magnesium Oxide [Mag-Ox] 250 mg PO BID 04/15/17 04/15/17 Previous Rx's Medication Instructions Recorded Alirocumab [Praluent Pen] 75 mg SQ WEEKLY #12 pen.injctr 04/16/17 Allergies Allergy/AdvReac Type Severity Reaction Status Date / Time acetaminophen [From Vicodin] AdvReac Rash/Hives Verified 09/22/17 06:40 ciprofloxacin [From Cipro] AdvReac Rash/Hives Verified 09/22/17 06:40 ciprofloxacin HCl AdvReac Rash/Hives Verified 09/22/17 06:40 [From Cipro] codeine AdvReac Rash/Hives Verified 09/22/17 06:40 egg AdvReac Rash/Hives Verified 09/22/17 06:40 hydrocodone bitartrate AdvReac Rash/Hives Verified 09/22/17 06:40 [From Vicodin] meperidine HCl [From Demerol] AdvReac Rash/Hives Verified 09/22/17 06:40 Penicillins AdvReac Rash/Hives Verified 09/22/17 06:40 Sulfa (Sulfonamide AdvReac Rash/Hives Verified 09/22/17 06:40 Antibiotics) venom-honey bee AdvReac Rash/Hives Verified 09/22/17 06:40 [bee venom (honey bee)] MUSHROOM AdvReac Rash/Hives Uncoded 09/22/17 06:40 Review of Systems ROS Statement: Those systems with pertinent positive or pertinent negative responses have been documented in the HPI. ROS Other: All systems not noted in ROS Statement are negative. Constitutional: Denies: fever Eyes: Denies: eye pain ENT: Denies: ear pain Respiratory: Denies: cough, dyspnea Cardiovascular: Denies: chest pain Endocrine: Denies: fatigue Gastrointestinal: Denies: abdominal pain Genitourinary: Denies: dysuria Musculoskeletal: Denies: back pain Skin: Reports: rash Neurological: Denies: weakness Past Medical History Past Medical History: Asthma, COPD, Deep Vein Thrombosis (DVT), GERD/Reflux, Hyperlipidemia, Hypertension, Osteoarthritis (OA) Additional Past Medical History / Comment(s): Catarino Teague does scopes every 2 years; per pt has really bad reflux which caused issue. History of Any Multi-Drug Resistant Organisms: None Reported Past Surgical History: Appendectomy, Section, Cholecystectomy, Joint Replacement, Orthopedic Surgery, Tonsillectomy Additional Past Surgical History / Comment(s): NECK SX, LT FOOT SX, COLONOSCOPY , D&C, EGD, BILAT TKA X 4, RT EAR TUBE INSERTED Past Anesthesia/Blood Transfusion Reactions: Postoperative Nausea & Vomiting ( PONV) Past Psychological History: Anxiety Smoking Status: Current every day smoker Past Alcohol Use History: Rare Past Drug Use History: Marijuana - Past Family History Father Family Medical History: Cancer Mother Family Medical History: CVA/TIA Additional Family Medical History / Comment(s): triple bypass General Exam Limitations: no limitations General appearance: alert, in no apparent distress Head exam: Present: atraumatic Eye exam: Present: normal appearance Neck exam: Present: normal inspection Respiratory exam: Present: normal lung sounds bilaterally Cardiovascular Exam: Present: regular rate, normal rhythm Extremities exam: Present: other (Left medial lower leg with irregular area of approximately 2 x 5 cm of erythema and tenderness.) Neurological exam: Present: alert Psychiatric exam: Present: normal affect, normal mood Skin exam: Present: erythema Course Vital Signs 09/22/17 06:36 Temperature 97.6 F Pulse Rate 82 Respiratory 18 Rate Blood Pressure 161/76 O2 Sat by Pulse 100 Oximetry Medical Decision Making - Medical Decision Making Patient reevaluated and updated. - Radiology Data Radiology results: image reviewed (Ultrasound negative for DVT. Ultrasound does show superficial phlebitis.) Disposition Clinical Impression: Superficial phlebitis Disposition: HOME SELF-CARE Condition: Stable Instructions: Superficial Thrombophlebitis (ED) Additional Instructions: Warm compresses to affected area. Please follow-up with primary care physician in the next few days for recheck. Return for increased pain, increased redness , fever, swelling, worsening symptoms or other concerns. Is patient prescribed a controlled substance at d/c from ED?: No Referrals: Cornel Darden MD [Primary Care Provider] - 1-2 days Time of Disposition: 08:48
--- NOTE | 2017-09-22 08:16 | US ---
EXAMINATION TYPE: US venous doppler duplex LE LT DATE OF EXAM: 09/22/2017 7:47 AM COMPARISON: US CLINICAL HISTORY: Pain. left lower leg redness SIDE PERFORMED: Left TECHNIQUE: The lower extremity deep venous system is examined utilizing real time linear array sonog cristino with graded compression, doppler sonography and color-flow sonography. VESSELS IMAGED: External Iliac Vein (EIV) Common Femoral Vein Deep Femoral Vein Greater Saphenous Vein * Femoral Vein Popliteal Vein Proximal Calf Veins (* superficial vessels) Patient has history of DVT leg many years ago. Left Leg: Negative for DVT. The femoral vein and pop vein are small in caliber, consistent with hist ory of prior DVT years ago. At sight of red, raised area lower leg the superficial GSV is enlarged wi th internal echoes and no flow. No popliteal fossa lesion is seen. IMPRESSION: 1. EXAMINATION IS NEGATIVE FOR DVT WITHIN THE LEFT LEG. 2. THIS EXAMINATION IS POSITIVE FOR SUPERFICIAL PHLEBITIS INVOLVING THE LOWER GREATER SAPHENOUS VEIN.
[2017-09-22 08:54] VITALS: BP 146/78; PULSE 86; RESP 16
== END 2017-09-22 08:54 | disposition home or self-care (01) ==
LOC: EC 06:32
DX: I80.02 Phlebitis and thrombophlebitis of superficial vessels of left lower extremity (principal); J32.9 Chronic sinusitis, unspecified; I10 Essential (primary) hypertension; J44.9 Chronic obstructive pulmonary disease, unspecified; K21.9 Gastro-esophageal reflux disease without esophagitis; F17.200 Nicotine dependence, unspecified, uncomplicated; Z79.899 Other long term (current) drug therapy; Z88.0 Allergy status to penicillin; Z88.1 Allergy status to other antibiotic agents; Z88.2 Allergy status to sulfonamides; Z88.5 Allergy status to narcotic agent; Z88.8 Allergy status to other drugs, medicaments and biological substances; Z91.012 Allergy to eggs; Z91.018 Allergy to other foods; Z91.030 Bee allergy status; Z96.653 Presence of artificial knee joint, bilateral
CPT/HCPCS: 99283

== ENCOUNTER → 2017-11-15 | Outpatient (CLI) | payer MEDICARE, OTHER ==
[2017-11-15 17:29] LABS: Hemoglobin A1C 6.3 % (4.0-6.0)
[2017-11-16 10:54] LABS: Protein C Antigen 150 % (72-160)
[2017-11-16 13:50] LABS: Protein S Antigen 120 % (50 - 140)
== END | disposition home or self-care (01) ==
LOC: LABWHC1 10:53
PROVIDERS: ATTEND Family Medicine
DX: I82.409 Acute embolism and thrombosis of unspecified deep veins of unspecified lower extremity (principal); I10 Essential (primary) hypertension; E11.9 Type 2 diabetes mellitus without complications
CPT/HCPCS: 36415; 81241; 83036; 85302; 85305

== ENCOUNTER → 2018-07-03 | Outpatient (CLI) | payer MEDICARE, OTHER ==
[2018-07-03 08:53] LABS: HGB 15.3 gm/dL (11.4-16.0); MCH 29.7 pg (25.0-35.0); MCHC 33.3 g/dL (31.0-37.0); MCV 89.3 fL (80.0-100.0); Mean Platelet Volume 7.2; Platelet Count 359 k/uL (150-450); RBC 5.15 m/uL (3.80-5.40); RDW 13.6 % (11.5-15.5); WBC 13.1 k/uL (3.8-10.6)
[2018-07-03 08:54] LABS: Appearance,Urine Clear (Clear); Bilirubin,Urine Negative (Negative); Blood,Urine Negative (Negative); Color,Urine Light Yellow; Glucose,Urine (UA) Negative (Negative); Ketones,Urine Negative (Negative); Leukocyte Esterase,Urine Negative (Negative); Nitrite,Urine Negative (Negative); Protein,Urine Negative (Negative); Urobilinogen,Urine <2.0 mg/dL (<2.0)
[2018-07-03 08:59] LABS: INR 0.9 (<1.2); Partial Thromboplastin Time 24.8 sec (22.0-30.0); Prothrombin Time 9.5 sec (9.0-12.0)
--- NOTE | 2018-07-03 09:23 | XR ---
EXAMINATION TYPE: XR chest 2V DATE OF EXAM: 07/03/2018 COMPARISON: 04/15/2017 INDICATION: Presurgical clearance TECHNIQUE: Frontal and lateral views of the chest are obtained. FINDINGS: The heart size is normal. The pulmonary vasculature is normal. The lungs are clear. Prior anterior cervical fusion is evident. IMPRESSION: 1. No acute pulmonary process.
[2018-07-03 15:59] LABS: Albumin 4.8 g/dL (3.80-4.90); Albumin/Globulin Ratio 1.85 (1.20-2.10); Anion Gap 9.6 mmol/L (4.00-12.00); Calcium 10.1 mg/dL (8.7-10.3); Carbon Dioxide 28.4 mmol/L (21.6-31.8); Globulin 2.6 g/dL (1.6-3.3); Potassium 4.4 mmol/L (3.5-5.5); Total Bilirubin 0.4 mg/dL (0.3-1.2); Total Protein 7.4 g/dL (6.2-8.2)
== END | disposition home or self-care (01) ==
LOC: LABWHC1 08:26
PROVIDERS: ATTEND Surgery Vascular Surgery
DX: Z01.818 Encounter for other preprocedural examination (principal)
CPT/HCPCS: 36415; 71046; 80053; 81003; 85027; 85610; 85730; 87086

== ENCOUNTER → 2019-03-11 | Outpatient (CLI) | payer MEDICARE, OTHER ==
[2019-03-11 11:43] LABS: INR 0.9 (<1.2); Partial Thromboplastin Time 26.1 sec (22.0-30.0); Prothrombin Time 9.7 sec (9.0-12.0)
[2019-03-11 11:54] LABS: HCT 43.3 % (34.0-46.0); MCH 30.2 pg (25.0-35.0); MCHC 32.4 g/dL (31.0-37.0); MCV 93.1 fL (80.0-100.0); Mean Platelet Volume 7.9; Platelet Count 383 k/uL (150-450); RBC 4.65 m/uL (3.80-5.40); RDW 13.7 % (11.5-15.5); WBC 10.6 k/uL (3.8-10.6)
[2019-03-11 17:43] LABS: African American GFR (CKD) 81.7 (60.0-200.0); Anion Gap 9.5 mmol/L (4.00-12.00); Calcium 9.5 mg/dL (8.7-10.3); Carbon Dioxide 26.5 mmol/L (21.6-31.8); Potassium 4.2 mmol/L (3.5-5.5)
== END | disposition home or self-care (01) ==
LOC: LABWHC1 09:28
PROVIDERS: ATTEND Surgery Vascular Surgery
DX: Z01.812 Encounter for preprocedural laboratory examination (principal); N18.9 Chronic kidney disease, unspecified; Z79.01 Long term (current) use of anticoagulants
CPT/HCPCS: 36415; 80048; 85027; 85610; 85730

== ENCOUNTER 2019-05-25 09:26 | Emergency (ER) | payer MEDICARE, OTHER ==
[2019-05-25 09:39] VITALS: RESP 18
[2019-05-25] MEDS ORDERED: LORazepam 2 MG/ML INJ IV STA (09:53)
[2019-05-25] MEDS ORDERED: SODIUM CHLORIDE 0.9% 500 ML 500 ML IV STA (09:53)
--- NOTE | 2019-05-25 09:57 | ED ---
General Adult HPI - General Chief complaint: Neuro Symptoms/Deficit Stated complaint: Tingling in hands, paresthesias Time Seen by Provider: 05/25/19 09:42 Source: patient, RN notes reviewed Mode of arrival: wheelchair Limitations: no limitations - History of Present Illness Initial comments: Patient is a pleasant 59-year-old female presenting to the emergency department for tingling in her hands and paresthesias. Onset of symptoms was this morning. Patient did have surgery for a bone spur on her left foot 2 days ago. This has been healing well. Patient felt well yesterday. Patient denies any weakness. No confusion. No loss of sensation. Patient states symptoms are mostly in her hands which includes paresthesias and tingling. Patient states she does occasionally get mild headaches which is normal for her. Discomfort is not severe. Patient does have a distant history of severe headaches however not for years. No confusion. No history of similar symptoms previously. - Related Data Home Medications Medication Instructions Recorded Confirmed EPINEPHrine (Auto Inject) [Epipen] 0.3 mg IM ONCE PRN 02/19/14 05/25/19 Omeprazole 40 mg PO BID 02/19/14 05/25/19 amLODIPine BESYLATE [Norvasc] 5 mg PO BID 02/19/14 05/25/19 Magnesium Oxide [Mag-Ox] 250 mg PO BID 04/15/17 05/25/19 Albuterol Sulfate [Ventolin HFA] 1 - 2 puff INHALATION RT-Q6H PRN 05/25/19 05/25/19 Apixaban [Eliquis] 5 mg PO BID 05/25/19 05/25/19 Aspirin EC [Ecotrin Low Dose] 81 mg PO DAILY 05/25/19 05/25/19 Atorvastatin Calcium [Lipitor] 40 mg PO HS 05/25/19 05/25/19 Hydrochlorothiazide [Hydrodiuril] 25 mg PO HS 05/25/19 05/25/19 [place]-3 Fatty Acids [[place]-3] 1,000 mg PO HS 05/25/19 05/25/19 Potassium Chloride ER [K-Dur 20] 20 meq PO DAILY 05/25/19 05/25/19 Ubidecarenone [Co Q-10] 500 mg PO DAILY 05/25/19 05/25/19 Vit C/E/Zn/Coppr/Lutein/Zeaxan 1 cap PO HS 05/25/19 05/25/19 [Preservision Areds 2 Softgel] busPIRone HCL 15 mg PO BID 05/25/19 05/25/19 cloNIDine HCL [Catapres] 0.1 mg PO BID 05/25/19 05/25/19 metFORMIN HCL ER [Glucophage Xr] 500 mg PO DAILY 05/25/19 05/25/19 Allergies Allergy/AdvReac Type Severity Reaction Status Date / Time morphine Allergy Rash/Hives Verified 05/25/19 11:29 venom-honey bee Allergy Anaphylaxis Verified 05/25/19 11:29 [bee venom (honey bee)] ciprofloxacin [From Cipro] AdvReac Rash/Hives Verified 05/25/19 11:29 ciprofloxacin HCl AdvReac Rash/Hives Verified 05/25/19 11:29 [From Cipro] codeine AdvReac Rash/Hives Verified 05/25/19 11:29 egg AdvReac Rash/Hives Verified 05/25/19 11:29 hydrocodone bitartrate AdvReac Rash/Hives Verified 05/25/19 11:29 [From Vicodin] meperidine HCl [From Demerol] AdvReac Rash/Hives Verified 05/25/19 11:29 Penicillins AdvReac Rash/Hives Verified 05/25/19 11:29 Sulfa (Sulfonamide AdvReac Rash/Hives Verified 05/25/19 11:29 Antibiotics) MUSHROOM AdvReac Rash/Hives Uncoded 09/22/17 06:40 Review of Systems ROS Statement: Those systems with pertinent positive or pertinent negative responses have been documented in the HPI. ROS Other: All systems not noted in ROS Statement are negative. Constitutional: Denies: fever Eyes: Denies: eye pain ENT: Denies: ear pain Respiratory: Denies: cough Cardiovascular: Denies: chest pain Endocrine: Denies: fatigue Gastrointestinal: Denies: abdominal pain Genitourinary: Denies: dysuria Musculoskeletal: Denies: back pain Skin: Denies: rash Neurological: Reports: as per HPI, paresthesias. Denies: weakness, confusion Past Medical History Past Medical History: Asthma, COPD, Deep Vein Thrombosis (DVT), GERD/Reflux, Hyperlipidemia, Hypertension, Osteoarthritis (OA) Additional Past Medical History / Comment(s): [facility] wilkinson- Dr. Teague does scopes every 2 years; per pt has really bad reflux which caused issue. History of Any Multi-Drug Resistant Organisms: None Reported Past Surgical History: Appendectomy, Section, Cholecystectomy, Joint Replacement, Orthopedic Surgery, Tonsillectomy Additional Past Surgical History / Comment(s): NECK SX, LT FOOT SX, COLONOSCOPY, D&C, EGD, BILAT TKA X 4, RT EAR TUBE INSERTED, bone spur removal, left leg bypass Past Anesthesia/Blood Transfusion Reactions: Postoperative Nausea & Vomiting (PONV) Past Psychological History: Anxiety Smoking Status: Current every day smoker Past Alcohol Use History: Rare Past Drug Use History: Marijuana - Past Family History Father Family Medical History: Cancer Mother Family Medical History: CVA/TIA Additional Family Medical History / Comment(s): triple bypass General Exam Limitations: no limitations General appearance: alert, in no apparent distress Head exam: Present: normocephalic Eye exam: Present: normal appearance, PERRL, EOMI. Absent: nystagmus ENT exam: Present: normal oropharynx Neck exam: Present: normal inspection Respiratory exam: Present: normal lung sounds bilaterally Cardiovascular Exam: Present: regular rate, normal rhythm GI/Abdominal exam: Present: soft. Absent: tenderness Extremities exam: Present: normal inspection Neurological exam: Present: alert, CN II-XII intact. Absent: motor sensory deficit Expanded Neurological exam: Present: protecting the airway Speech: Present: fluid speech Cranial nerves: EOM's Intact: Normal, Facial Sensation: Normal Sensory exam: Upper Extremity Light Touch: Normal, Lower Extremity Light Touch: Normal Motor strength exam: RUE: 5, LUE: 5, RLE: 5, LLE: 5 Eye Response: (4) open spontaneously Motor Response: (6) obeys commands Verbal Response: (5) oriented Psychiatric exam: Present: normal affect, normal mood Skin exam: Present: normal color Course Vital Signs 05/25/19 05/25/19 09:36 11:24 Temperature 97.8 F Pulse Rate 70 71 Respiratory 18 18 Rate Blood Pressure 176/77 138/82 O2 Sat by Pulse 99 96 Oximetry EKG Findings - EKG Comments: EKG Findings:: normal sinus rhythm 66. HI 150. QRS 90. QT 396. QTc 4:15. Left axis. Normal QRS. No acute ST change. Medical Decision Making - Medical Decision Making patient reevaluated and symptom-free following Ativan. Patient remains symptom- free. Patient updated on results and need for follow-up. Patient is comfortable with discharge home. - Lab Data Result diagrams: 05/25/19 10:10 05/25/19 10:10 Lab Results 05/25/19 05/25/19 Range/Units 10:10 10:10 WBC 11.9 H (3.8-10.6) k/uL RBC 4.41 (3.80-5.40) m/uL Hgb 13.4 (11.4-16.0) gm/dL Hct 39.8 (34.0-46.0) % MCV 90.3 (80.0-100.0) fL MCH 30.4 (25.0-35.0) pg MCHC 33.6 (31.0-37.0) g/dL RDW 13.1 (11.5-15.5) % Plt Count 349 (150-450) k/uL Neutrophils % 71 % Lymphocytes % 19 % Monocytes % 4 % Eosinophils % 4 % Basophils % 1 % Neutrophils # 8.5 H (1.3-7.7) k/uL Lymphocytes # 2.3 (1.0-4.8) k/uL Monocytes # 0.5 (0-1.0) k/uL Eosinophils # 0.4 (0-0.7) k/uL Basophils # 0.1 (0-0.2) k/uL Sodium 140 (137-145) mmol/L Potassium 4.0 (3.5-5.1) mmol/L Chloride 108 H (98-107) mmol/L Carbon Dioxide 25 (22-30) mmol/L Anion Gap 7 mmol/L BUN 13 (7-17) mg/dL Creatinine 0.76 (0.52-1.04) mg/dL Est GFR (CKD-EPI)AfAm >90 (>60 ml/min/1.73 sqM) Est GFR (CKD-EPI)NonAf 87 (>60 ml/min/1.73 sqM) Glucose 117 H (74-99) mg/dL Calcium 9.6 (8.4-10.2) mg/dL Magnesium 1.9 (1.6-2.3) mg/dL Total Bilirubin 0.5 (0.2-1.3) mg/dL AST 23 (14-36) U/L ALT 14 (4-34) U/L Alkaline Phosphatase 126 (38-126) U/L Creatine Kinase 60 (30-135) U/L Total Protein 7.1 (6.3-8.2) g/dL Albumin 4.1 (3.5-5.0) g/dL TSH 2.150 (0.465-4.680) mIU/L Free T4 1.02 (0.78-2.19) ng/dL Free T3 pg/mL 3.2 (2.8-5.3) pg/ml Disposition Clinical Impression: Paresthesias Disposition: HOME SELF-CARE Condition: Stable Instructions (If sedation given, give patient instructions): Paresthesia (ED) Additional Instructions: please follow-up with primary care physician in the next couple days for recheck. Return for weakness, loss of sensation, confusion,worsening symptoms or other concerns. Is patient prescribed a controlled substance at d/c from ED?: No Referrals: Cornel Darden MD [Primary Care Provider] - 1-2 days Time of Disposition: 12:02
[2019-05-25 10:18] LABS: Basophils # (A) 0.1 k/uL (0-0.2); Basophils % (A) 1 %; Eosinophils # (A) 0.4 k/uL (0-0.7); Eosinophils % (A) 4 %; HCT 39.8 % (34.0-46.0); HGB 13.4 gm/dL (11.4-16.0); Lymphocytes # (A) 2.3 k/uL (1.0-4.8); Lymphocytes % (A) 19 %; MCH 30.4 pg (25.0-35.0); MCHC 33.6 g/dL (31.0-37.0); MCV 90.3 fL (80.0-100.0); Mean Platelet Volume 7.9; Monocytes # (A) 0.5 k/uL (0-1.0); Monocytes % (A) 4 %; Neutrophils # (A) 8.5 k/uL (1.3-7.7); Neutrophils % (A) 71 %; Platelet Count 349 k/uL (150-450); RBC 4.41 m/uL (3.80-5.40); RDW 13.1 % (11.5-15.5); WBC 11.9 k/uL (3.8-10.6)
[2019-05-25 10:33] LABS: ALT 14 U/L (4-34); AST 23 U/L (14-36); African American GFR (CKD) >90 (>60 ml/min/1.73 sqM); Albumin 4.1 g/dL (3.5-5.0); Alkaline Phosphatase 126 U/L (38-126); Anion Gap 7 mmol/L; Blood Urea Nitrogen 13 mg/dL (7-17); Calcium 9.6 mg/dL (8.4-10.2); Carbon Dioxide 25 mmol/L (22-30); Chloride 108 mmol/L (98-107); Creatine Kinase 60 U/L (30-135); Glucose 117 mg/dL (74-99); Magnesium 1.9 mg/dL (1.6-2.3); Non-African American GFR(CKD) 87 (>60 ml/min/1.73 sqM); Sodium 140 mmol/L (137-145); Total Bilirubin 0.5 mg/dL (0.2-1.3); Total Protein 7.1 g/dL (6.3-8.2)
[2019-05-25 10:50] LABS: T4, Free (Free Thyroxine) 1.02 ng/dL (0.78-2.19)
[2019-05-25 12:14] VITALS: BP 150/87; PULSE 70; TEMP 98
== END 2019-05-25 12:13 | disposition home or self-care (01) ==
LOC: EC 09:26
DX: R20.2 Paresthesia of skin (principal); R51 Headache; J44.9 Chronic obstructive pulmonary disease, unspecified; K21.9 Gastro-esophageal reflux disease without esophagitis; E78.5 Hyperlipidemia, unspecified; I10 Essential (primary) hypertension; M19.90 Unspecified osteoarthritis, unspecified site; K22.70 Barrett's esophagus without dysplasia; F41.9 Anxiety disorder, unspecified; F17.200 Nicotine dependence, unspecified, uncomplicated; Z88.0 Allergy status to penicillin; Z88.1 Allergy status to other antibiotic agents; Z88.2 Allergy status to sulfonamides; Z88.5 Allergy status to narcotic agent; Z91.012 Allergy to eggs; Z91.018 Allergy to other foods; Z91.030 Bee allergy status; Z79.01 Long term (current) use of anticoagulants; Z79.82 Long term (current) use of aspirin; Z79.84 Long term (current) use of oral hypoglycemic drugs; Z79.899 Other long term (current) drug therapy; Z86.718 Personal history of other venous thrombosis and embolism; Z96.653 Presence of artificial knee joint, bilateral; Z98.890 Other specified postprocedural states
CPT/HCPCS: 99284; 96374; 36415; 93005; 84439; 84481; 80053; 82550; 83735; 84443; 85025; J2060

== ENCOUNTER → 2019-06-17 | Outpatient (CLI) | payer MEDICARE, OTHER ==
--- NOTE | 2019-06-18 07:20 | CT ---
EXAMINATION TYPE: CT abdomen wo/w con DATE OF EXAM: 06/17/2019 COMPARISON: None INDICATION: adrenal mass DLP: 1483 mGycm, Automated exposure control for dose reduction was used. CONTRAST: 100 mL of Isovue 300. Study performed with Oral Contrast TECHNIQUE: Axial images were obtained from above the diaphragm to the pubic rami in the axial plane a t 5 mm thick sections. Reconstructed images are reviewed on the computer in the coronal plane. FINDINGS: Limited CT sections are obtained the lung bases. The lung bases are clear. CT ABDOMEN: Liver: Normal Spleen: Normal Pancreas: Normal Adrenal glands: There is a large heterogenous mass in the right adrenal gland. This measures 5.2 x 4. 3 x 4.8 cm in size. Primary and metastatic neoplasm should be considered. Gallbladder: Surgically absent Kidneys: No masses are evident. No hydronephrosis is present. There is a 0.5 cm medial mid right re nal cortex cyst measuring 7 Hounsfield units. Delayed images were obtained through the kidneys, whic h remain unremarkable. Aorta: Vascular calcification is within the aorta. Inferior vena cava: Normal. IMPRESSIONS: 1. 5 cm heterogenous enhancing mass right adrenal gland. Workup for neoplasm is recommended.
== END | disposition home or self-care (01) ==
LOC: RADCTMAIN 15:57
PROVIDERS: ATTEND Family Medicine
DX: E27.8 Other specified disorders of adrenal gland (principal)
CPT/HCPCS: 82565; 84520; 74170; 36415; Q9967

== ENCOUNTER → 2019-08-05 | Outpatient (CLI) | payer MEDICARE, OTHER ==
--- NOTE | 2019-08-05 13:20 | CT ---
EXAMINATION TYPE: CT brain wo con DATE OF EXAM: 08/05/2019 COMPARISON: 01/27/2015 CT brain HISTORY: AMAYA for [address] DLP: 1054.2 mGycm. Automated Exposure Control for Dose Reduction was Utilized. TECHNIQUE: CT scan of the head is performed without contrast. FINDINGS: There is no acute intracranial hemorrhage, mass effect, or midline shift identified. CSF attenuated lacunar injury of the inferior right lentiform nucleus on series 9 image 18 not seen on th e prior of 2014. The ventricles and sulci are within normal limits in size. Scant mucosal thickening in the ethmoid sinuses. The globes are intact and the remaining visualized sinuses are clear. IMPRESSION: 1. No acute intracranial hemorrhage, mass effect, or midline shift is seen. 2. Old lacunar injury of the inferior right lentiform nucleus. 3. Scant mucosal thickening of the ethmoid sinuses.
== END | disposition home or self-care (01) ==
LOC: RADCTMAIN 12:18
PROVIDERS: ATTEND Family Medicine
DX: R51 Headache (principal); Z87.820 Personal history of traumatic brain injury
CPT/HCPCS: 70450

== ENCOUNTER → 2020-10-26 | Outpatient (CLI) | payer MEDICARE, OTHER ==
--- NOTE | 2020-10-26 10:57 | XR ---
EXAMINATION TYPE: XR lumbar spine 2 or 3V DATE OF EXAM: 10/26/2020 CLINICAL HISTORY: pain TECHNIQUE: Three views of the lumbar spine are submitted. COMPARISON: None. FINDINGS: There are 5 lumbar type vertebral bodies identified. Curvature seen convex to the left. The lumbar s pine shows satisfactory alignment without evidence of acute fracture or dislocation. Vertebral body h eights are within normal limits. Moderate multilevel degenerative disc space narrowing and spondylosi s. Facet joint arthropathy. The overlying soft tissue appears unremarkable. IMPRESSION: No acute fracture or dislocation is seen in the lumbar spine. ICD 10 NO FRACTURE, INITIAL EVALUATION
== END | disposition home or self-care (01) ==
LOC: RADXRMAIN 10:22
PROVIDERS: ATTEND Family Medicine
DX: M54.5 Low back pain (principal)
CPT/HCPCS: 72100

== ENCOUNTER → 2020-11-12 | Outpatient (CLI) | payer MEDICARE, OTHER ==
--- NOTE | 2020-11-14 11:10 | CT ---
EXAMINATION TYPE: CT lumbar spine wo con DATE OF EXAM: 11/12/2020 COMPARISON: 10/26/2020 x-ray HISTORY: radiculopathy CT DLP: 936.2 mGycm CONTRAST: None TECHNIQUE: CT of the lumbar spine is performed on a spiral scan at 3 mm thick sections. Reconstructed images are performed in the coronal and sagittal planes. FINDINGS: T11-T12: No focal disc herniation or significant disc bulge is evident. No spinal canal stenosis or neural foraminal stenosis is present. T12-L1: No focal disc herniation or significant disc bulge is evident. No spinal canal stenosis or neural foraminal stenosis is present. L1-L2: No focal disc herniation or significant disc bulge is evident. No spinal canal stenosis or n eural foraminal stenosis is present L2-L3: No focal disc herniation or significant disc bulge is evident. No spinal canal stenosis or n eural foraminal stenosis is present L3-L4: Broad-based disc bulges mild anterior thecal sac compression. No AP spinal canal stenosis pres ent. Neural foramen are patent. L4-L5: Broad-based disc bulge has mild anterior thecal sac flattening. Facet hypertrophy is present. Posterior lateral thecal sac compression is present. Ligamentum flavum laxity is present causing spin al canal narrowing with an AP diameter of 0.9 cm. Some mild lateral recess narrowing is present. L5-S1: No focal disc herniation or significant disc bulge is evident. No spinal canal stenosis or n eural foraminal stenosis is present All scoliosis to the lumbar spine. Disc heights appear preserved. Vertebral body heights are preserve d. IMPRESSION: 1. Broad-based disc bulge L4-5 with anterior thecal sac flattening. Facet hypertrophy and ligamentum flavum laxity is contributing to AP spinal canal stenosis.
== END | disposition home or self-care (01) ==
LOC: RADCTMAIN 07:45
PROVIDERS: ATTEND Family Medicine
DX: M51.16 Intervertebral disc disorders with radiculopathy, lumbar region (principal); M47.26 Other spondylosis with radiculopathy, lumbar region; M48.061 Spinal stenosis, lumbar region without neurogenic claudication
CPT/HCPCS: 72131

== ENCOUNTER → 2021-02-04 | Outpatient (CLI) | payer MEDICARE, OTHER ==
[2021-02-04 09:17] LABS: INR 0.9 (<1.2); Partial Thromboplastin Time 23.4 sec (22.0-30.0); Prothrombin Time 9.7 sec (9.0-12.0)
[2021-02-04 18:26] LABS: HCT 39.8 % (37.2-46.3); HGB 12.7 g/dL (12.0-15.0); MCHC 31.9 g/dL (32.0-37.0); MCV 94.1 fL (80.0-97.0); Mean Platelet Volume 10.9 fL (9.5-12.2); Platelet Count 364 X 10*3/uL (140-440); RBC 4.23 X 10*6/uL (4.10-5.20); RDW 14.6 % (11.5-14.5); WBC 9.64 X 10*3/uL (4.50-10.00)
[2021-02-05 17:04] LABS: African American GFR (CKD) 70.9 (60.0-200.0); Calcium 9.6 mg/dL (8.7-10.3); Non-African American GFR(CKD) 61.2 (60.0-200.0)
== END | disposition home or self-care (01) ==
LOC: LABWHC1 08:23
PROVIDERS: ATTEND Surgery Vascular Surgery
DX: D68.9 Coagulation defect, unspecified (principal)
CPT/HCPCS: 36415; 80048; 85027; 85610; 85730

== ENCOUNTER → 2021-04-13 | Outpatient (CLI) | payer MEDICARE, OTHER ==
[2021-04-13 09:28] LABS: HCT 32.7 % (34.0-46.0); HGB 10.6 gm/dL (11.4-16.0); Hypochromasia Moderate; MCH 27.4 pg (25.0-35.0); MCHC 32.3 g/dL (31.0-37.0); MCV 84.7 fL (80.0-100.0); Mean Platelet Volume 7.5; Platelet Count 495 k/uL (150-450); Poikilocytosis Slight; RBC 3.86 m/uL (3.80-5.40); RDW 14.6 % (11.5-15.5); WBC 12.3 k/uL (3.8-10.6)
[2021-04-13 09:44] LABS: INR 0.9 (<1.2); Partial Thromboplastin Time 23.6 sec (22.0-30.0); Prothrombin Time 9.9 sec (9.0-12.0)
[2021-04-13 09:52] LABS: Calcium 10.1 mg/dL (8.4-10.2); Potassium 4.8 mmol/L (3.5-5.1)
== END | disposition home or self-care (01) ==
LOC: LABPAT 08:07
PROVIDERS: ATTEND Nurse Practitioner Gerontology
DX: Z01.812 Encounter for preprocedural laboratory examination (principal); D68.9 Coagulation defect, unspecified
CPT/HCPCS: 80048; 85027; 85610; 85730

== ENCOUNTER → 2021-05-02 | Outpatient (CLI) | payer MEDICARE, OTHER ==
[2021-05-02 09:35] LABS: Appearance,Urine Clear (Clear); Bilirubin,Urine Negative (Negative); Blood,Urine Negative (Negative); Color,Urine Yellow; Glucose,Urine (UA) Negative (Negative); Ketones,Urine Negative (Negative); Leukocyte Esterase,Urine Negative (Negative); Nitrite,Urine Negative (Negative); PH, Urine 5.5 (5.0-8.0); Protein,Urine Negative (Negative); Specific Gravity,Urine 1.016 (1.001-1.035); Urobilinogen,Urine <2.0 mg/dL (<2.0)
== END | disposition home or self-care (01) ==
LOC: LABWHC1 09:08
PROVIDERS: ATTEND Surgery Vascular Surgery
DX: Z01.812 Encounter for preprocedural laboratory examination (principal)
CPT/HCPCS: 81003